=== PATIENT | male | born 1990 | race Caucasian/White ===

== ENCOUNTER 2017-10-04 07:40 | Emergency (ER) | payer OTHER ==
[~2017-10-04] VITALS: Ht 177.8 cm; Wt 109.8 kg
[~2017-10-04 07:40] MED LIST: IBUPROFEN 800800 M1 PO; KEFLEX500 MG PO; MEDROLDOSEPACK PO; NOHOMEMEDICATIONS; NORCO 5-325 TA1 EACH PO; PERCOCET 7.5-31 EACH PO; PERCOCET PO; PHENAZOPYRIDIN200 M2 PO; PROMETH-CODEIN 65 ML PO; SENOKOT-S1 TA1 PO; SYMAX-SL0.125 MG SL; VENTOLIN HFA 1818 GM INH; ZPAK PO
[2017-10-04] MEDS ORDERED: ALLOPURINOL 10100 M1 PO (07:55)
[2017-10-04] MEDS ORDERED: NORCO 5-325 TA1 EACH PO (09:06)
[2017-10-04 09:19] VITALS: BP 110/71
== END 2017-10-04 09:19 | disposition home or self-care (01) ==
LOC: M.ERS 07:40
DX: M25.571 Pain in right ankle and joints of right foot (principal); M10.9 Gout, unspecified; Z87.442 Personal history of urinary calculi

== ENCOUNTER 2017-11-17 17:08 | Emergency (ER) | payer OTHER ==
[~2017-11-17] VITALS: Ht 177.8 cm; Wt 108.9 kg
[~2017-11-17 17:08] MED LIST changes: +ALLOPURINOL 10100 M1 PO
[2017-11-17] MEDS ORDERED: KEFLEX500 M1 PO (17:32)
[2017-11-17 18:23] VITALS: BP 128/88
== END 2017-11-17 18:25 | disposition home or self-care (01) ==
LOC: M.ERS 17:08
DX: S61.012A Laceration without foreign body of left thumb without damage to nail, initial encounter (principal); M10.9 Gout, unspecified; W26.0XXA Contact with knife, initial encounter; Y93.89 Activity, other specified; Y92.89 Other specified places as the place of occurrence of the external cause; Y99.8 Other external cause status